=== PATIENT | female | born 1995 | race Caucasian/White ===

== ENCOUNTER → 2020-10-28 | Outpatient (CLI) | payer BC ==
[~2020-10-28] MED LIST: AMOCLA250S PO; AMOCLA500 PO; AMOCLA600S PO; AMOX250 PO; CEPH500 PO; CODACE30 PO; DIAZ5 PO; IBUP600 PO; IBUP800 PO; MORENA; NAPR500 PO; OXYACE5T PO; PROM25 PO; RXCODACESY PO; RXCODACET PO; SULTRIDS PO; TOBR.3OPSO OP; TRAM50 PO
== END ==
LOC: LAB SHORT 10:00 → LAB 10:00 → EDSTATUS 10:26
DX: J06.9 Acute upper respiratory infection, unspecified (principal)
CPT/HCPCS: 87081

== ENCOUNTER 2022-01-03 02:05 | Inpatient (IN) | payer BC ==
[~2022-01-03] VITALS: Ht 167.6 cm; Wt 115.5 kg
[2022-01-03] MEDS ORDERED: PRENATAL TABLE1 EAC2 PO (04:03)
[2022-01-03 04:25] LABS: BASOPHILS ABSOLUTE AUTO 0.04 K/mm3 (0.00-0.23); BASOPHILS PERCENT AUTO 0 % (0-2); EOSINOPHILS ABSOLUTE AUTO 0.13 K/mm3 (0.00-0.68); EOSINOPHILS PERCENT AUTO 1 % (0-6); Hematocrit 38.9 % (33.0-51.0); Hemoglobin 13.3 g/dL (11.5-16.0); IMMATURE GRAN PERCENT AUTO 1 % (0-1); LYMPHOCYTES ABSOLUTE AUTO 2.11 K/mm3 (0.84-5.20); LYMPHOCYTES PERCENT AUTO 15 % (21-46); MONOCYTES ABSOLUTE AUTO 1.08 K/mm3 (0.16-1.47); MONOCYTES PERCENT AUTO 8 % (4-13); Mean Corpuscular HGB 30.7 pg (26.0-34.0); Mean Corpuscular HGB Conc 34.2 g/dL (31.5-36.5); Mean Corpuscular Volume 90 fL (80-100); Mean Platelet Volume 10.1 fL (9.1-12.4); NEUTROPHILS ABSOLUTE AUTO 10.58 K/mm3 (1.96-9.15); NEUTROPHILS PERCENT AUTO 75 % (41-73); Platelet Count 222 K/mm3 (150-400); RDW Coefficient Variation 12.2 % (11.7-14.2); RDW Standard Deviation 40.1 fL (35.1-46.3); Red Blood Cell Count 4.33 M/mm3 (3.80-5.20); White Blood Cell Count 14.04 K/mm3 (4.00-11.30)
[2022-01-04 06:13] LABS: BASOPHILS ABSOLUTE AUTO 0.04 K/mm3 (0.00-0.23); BASOPHILS PERCENT AUTO 0 % (0-2); EOSINOPHILS ABSOLUTE AUTO 0.13 K/mm3 (0.00-0.68); EOSINOPHILS PERCENT AUTO 1 % (0-6); Hematocrit 35.5 % (33.0-51.0); Hemoglobin 11.6 g/dL (11.5-16.0); IMMATURE GRAN ABSOLUTE AUTO 0.03 K/mm3 (0.00-0.10); IMMATURE GRAN PERCENT AUTO 0 % (0-1); LYMPHOCYTES ABSOLUTE AUTO 1.96 K/mm3 (0.84-5.20); LYMPHOCYTES PERCENT AUTO 17 % (21-46); MONOCYTES PERCENT AUTO 9 % (4-13); Mean Corpuscular HGB 30.4 pg (26.0-34.0); Mean Corpuscular HGB Conc 32.7 g/dL (31.5-36.5); Mean Corpuscular Volume 93 fL (80-100); Mean Platelet Volume 9.9 fL (9.1-12.4); NEUTROPHILS ABSOLUTE AUTO 8.51 K/mm3 (1.96-9.15); NEUTROPHILS PERCENT AUTO 72 % (41-73); Platelet Count 203 K/mm3 (150-400); RDW Coefficient Variation 12.4 % (11.7-14.2); Red Blood Cell Count 3.82 M/mm3 (3.80-5.20); White Blood Cell Count 11.77 K/mm3 (4.00-11.30)
[2022-01-04] MEDS ORDERED: IBUP800 PO (07:28)
[2022-01-04] MEDS ORDERED: DOCU100 PO (07:28)
--- NOTE | 2022-01-04 17:45 | NUR ---
parents given written and verbal dc instructions, verbalize understaning and deny questions. will follow up wednesday with selena gonzalez rn at 1100 am. has appt with leonel already scheduled. iv [email or web address]
== END 2022-01-04 17:35 | disposition home or self-care (01) | DRG 807 ==
LOC: OBS 02:05 → BC 02:12 → OBS 03:35 → BC 03:41
PROVIDERS: Student in an Organized Health Care Education/Training Program; ADMIT Family Medicine
PROC: 10E0XZZ Delivery of Products of Conception, External Approach (ICD-10-PCS; principal; 2022-01-03)
PROC: 00HU33Z Insertion of Infusion Device into Spinal Canal, Percutaneous Approach (ICD-10-PCS; 2022-01-03)
PROC: 3E0R3BZ Introduction of Anesthetic Agent into Spinal Canal, Percutaneous Approach (ICD-10-PCS; 2022-01-03)
PROC: 3E033VJ Introduction of Other Hormone into Peripheral Vein, Percutaneous Approach (ICD-10-PCS; 2022-01-03)
DX: O48.0 Post-term pregnancy (principal); Z37.0 Single live birth; O99.824 Streptococcus B carrier state complicating childbirth; Z3A.40 40 weeks gestation of pregnancy; Z67.10 Type A blood, Rh positive; Z86.16 Personal history of COVID-19; Z87.891 Personal history of nicotine dependence; Z79.899 Other long term (current) drug therapy
CPT/HCPCS: 36415; 51702; 59025; 85025; 86850; 86900; 86901; 87210; A9270; J0290; J1885; J2001; J2210; J2590; J3010; J7120

== ENCOUNTER 2024-01-07 00:40 | Inpatient (IN) | payer OTHER ==
[~2024-01-07] VITALS: Ht 167.6 cm; Wt 127.2 kg
[2024-01-07] VITALS (26 sets, daily range): BP systolic 105–149; BP diastolic 55–81
[~2024-01-07 00:40] MED LIST changes: +DOCU100 PO; +PRENATAL TABLE1 EAC2 PO
[2024-01-07] MEDS ORDERED: Ondansetron HCl 2 MG / ML 2ML Vial IV PRN (01:00)
[2024-01-07] MEDS ORDERED: FentaNYL Citrate 50 MCG/ML 2 ML Injection IV PRN (01:00)
[2024-01-07] MEDS ORDERED: Ampicillin Sod 2,000 MG in NS 100 ML IV STA (01:03)
[2024-01-07] MEDS ORDERED: Oxytocin 10 Unit / ML Vial IM SCH (01:05)
[2024-01-07] MEDS ORDERED: Lidocaine HCl 1% 30 ML SDV XX SCH (01:05)
[2024-01-07] MEDS ORDERED: Castor Oil 59.146 ML BTL TOP SCH (01:05)
[2024-01-07] MEDS ORDERED: Lactated Ringer's 1,000 ML IV PRN (01:05)
[2024-01-07] MEDS ORDERED: Bupivacaine 0.5% HCl 5 MG/ML 30MLVIAL XX SCH (01:05)
[2024-01-07] MEDS ORDERED: Bupivacaine HCl 2.5 MG/ML 10ML P/F Injection XX SCH (01:05)
[2024-01-07] MEDS ORDERED: Methylergonovine Maleate 0.2MG / ML 1ML Amp IM SCH (01:05)
[2024-01-07] MEDS ORDERED: Misoprostol 200 MCG Tab PR SCH (01:05)
[2024-01-07] MEDS ORDERED: LR Oxytocin 20 Units 1,000 ML IV SCH ×2 (01:05→13:10)
[2024-01-07] MEDS ORDERED: Lactated Ringer's 1,000 ML IV SCH ×2 (01:10→13:10)
[2024-01-07] MEDS ORDERED: Lactated Ringer's 1,000 ML IV ONE (01:10)
[2024-01-07] MEDS ORDERED: FentaNYL 2mcg/ml-Bup 0.1% Epd 250 ML EPI PRN (01:10)
[2024-01-07] MEDS ORDERED: ePHEDrine Sulfate 50 MG/ML 1ML Injection XX PRN (01:10)
[2024-01-07 02:10] LABS: BASOPHILS ABSOLUTE AUTO 0.02 K/mm3 (0.00-0.23); BASOPHILS PERCENT AUTO 0 % (0-2); EOSINOPHILS ABSOLUTE AUTO 0.19 K/mm3 (0.00-0.68); EOSINOPHILS PERCENT AUTO 2 % (0-6); Hematocrit 37.8 % (33.0-51.0); IMMATURE GRAN ABSOLUTE AUTO 0.04 K/mm3 (0.00-0.10); IMMATURE GRAN PERCENT AUTO 0 % (0-1); LYMPHOCYTES ABSOLUTE AUTO 2.06 K/mm3 (0.84-5.20); LYMPHOCYTES PERCENT AUTO 19 % (21-46); MONOCYTES ABSOLUTE AUTO 0.91 K/mm3 (0.16-1.47); MONOCYTES PERCENT AUTO 8 % (4-13); Mean Corpuscular HGB 30.7 pg (26.0-34.0); Mean Corpuscular HGB Conc 34.4 g/dL (31.5-36.5); Mean Corpuscular Volume 89 fL (80-100); Mean Platelet Volume 10.8 fL (9.1-12.4); NEUTROPHILS ABSOLUTE AUTO 7.66 K/mm3 (1.96-9.15); NEUTROPHILS PERCENT AUTO 70 % (41-73); Platelet Count 205 K/mm3 (150-400); RDW Standard Deviation 42.1 fL (35.1-46.3); Red Blood Cell Count 4.24 M/mm3 (3.80-5.20); White Blood Cell Count 10.88 K/mm3 (4.00-11.30)
[2024-01-07] MEDS ORDERED: FentaNYL Citrate 50 MCG/ML 2 ML Injection ONE (03:17)
[2024-01-07] MEDS ORDERED: Ampicillin Sod 1,000 MG in NS 100 ML IV SCH (05:00)
--- NOTE | 2024-01-07 07:46 | NUR ---
PT EDUCATED ON OUR NO CO-SLEEPING POLICY. PT STATES SHE WILL BE CO-SLEEPING WITH NB DURING HER STAY. PT EDUCATED PEOPLE HAVE DROPPED & SUFFOCATED THEIR BABIES LEADING TO SERIOUS INJURY AND . MOTHER STATES SHE IS AWARE BUT WILL STILL BE DOING IT. PT SIGNED AN AGAINST MEDICAL ADVICE FORM.
[2024-01-07] MEDS ORDERED: Misoprostol 200 MCG Tab PO PRN (13:05)
[2024-01-07] MEDS ORDERED: Methylergonovine Maleate 0.2MG / ML 1ML Amp IM PRN (13:05)
[2024-01-07] MEDS ORDERED: Witch Hazel/Glycerin PADS TOP PRN (13:10)
[2024-01-07] MEDS ORDERED: Docusate Sodium 100 MG Cap PO PRN (13:10)
[2024-01-07] MEDS ORDERED: Ibuprofen 400 MG Tab PO PRN (13:10)
[2024-01-07] MEDS ORDERED: Diphth,Pertuss(Acell),Tet Vac 0.5 ML VIAL IM ONE (13:10)
[2024-01-07] MEDS ORDERED: Acetaminophen 325 MG TABLET PO PRN (13:15)
[2024-01-07] MEDS ORDERED: Benzocaine Topical Anesthetic Spray 60GM TOP PRN (13:15)
[2024-01-07] MEDS ORDERED: Lanolin Cream TOP PRN (13:15)
[2024-01-07] MEDS ORDERED: OxyCODONE 5 mg/Acetamin 325 mg TABLET PO PRN (13:15)
[2024-01-07] MEDS ORDERED: Ketorolac Tromethamine 30mg Vial IV ONE (14:00)
[2024-01-07] MEDS ORDERED: Ketorolac Tromethamine 30mg Vial IV PRN (14:00)
[2024-01-08 05:46] VITALS: BP 133/82
[2024-01-08 07:14] VITALS: BP 136/88
[2024-01-08 07:37] LABS: Hemoglobin 11.5 g/dL (11.5-16.0); Mean Corpuscular HGB 30.4 pg (26.0-34.0); Mean Corpuscular HGB Conc 33.8 g/dL (31.5-36.5); Mean Corpuscular Volume 90 fL (80-100); Mean Platelet Volume 10.9 fL (9.1-12.4); Platelet Count 182 K/mm3 (150-400); RDW Coefficient Variation 13.3 % (11.7-14.2); RDW Standard Deviation 43.6 fL (35.1-46.3); Red Blood Cell Count 3.78 M/mm3 (3.80-5.20); White Blood Cell Count 7.95 K/mm3 (4.00-11.30)
[2024-01-08] MEDS ORDERED: DOCU100 PO (08:08)
[2024-01-08] MEDS ORDERED: IBUP800 PO (08:08)
[2024-01-08] MEDS ORDERED: Prenatal Vit/FE Fumarate/FA 1 Tab PO SCH (09:00)
--- NOTE | 2024-01-08 10:59 | NUR ---
dc instructions reviewed, will follow up wednesday at 11 am. declined meds this am, doing well, vss, bleeding wnl. would like to take own meds at home. follow up care reviewed and questions answered. bands matched
== END 2024-01-08 11:22 | disposition home or self-care (01) | DRG 807 ==
LOC: OBS 00:40 → BC 00:40 → OBS 01:02 → BC 01:03
PROVIDERS: ADMIT Advanced Practice Midwife
PROC: 10E0XZZ Delivery of Products of Conception, External Approach (ICD-10-PCS; principal; 2024-01-07)
PROC: 3E0R3BZ Introduction of Anesthetic Agent into Spinal Canal, Percutaneous Approach (ICD-10-PCS; 2024-01-07)
PROC: 3E0R33Z Introduction of Anti-inflammatory into Spinal Canal, Percutaneous Approach (ICD-10-PCS; 2024-01-07)
PROC: 10907ZC Drainage of Amniotic Fluid, Therapeutic from Products of Conception, Via Natural or Artificial Opening (ICD-10-PCS; 2024-01-07)
DX: O99.824 Streptococcus B carrier state complicating childbirth (principal); Z37.0 Single live birth; Z3A.38 38 weeks gestation of pregnancy
CPT/HCPCS: 36415; 51702; 59025; 85025; 85027; 86850; 86900; 86901; A9270; J0290; J1885; J2590; J7120